=== PATIENT | male | born 1955 | race Caucasian/White ===

== ENCOUNTER 2024-12-13 15:15 | Inpatient (IN) | payer MEDICARE ==
--- NOTE | 2024-12-13 15:46 | ED ---
Abdominal Pain HPI - General Chief Complaint: Abdominal Pain Stated Complaint: Abd Pain Time Seen by Provider: 12/13/24 15:21 Source: EMS Mode of arrival: EMS - History of Present Illness Initial Comments: This patient is a 69-year-old man who arrives here as a transfer from [facility]. The patient had gone there to have evaluation of abdominal pain that started around 12:30 AM this morning. The patient indicates that the pain was a periumbilical and right upper quadrant. The pain seemed to radiate towards his right shoulder for a bit. He described the pain as aching and cramping. There was associated nausea and vomiting. Patient did not note fever or chills. No change in bowel movements or urination. No other associated symptoms. The patient had workup at the other hospital and included the CT which reportedly showed 2.5 cm stone at the gallbladder neck with distended gallbladder and mild wall thickening which they read as suspicious for de veloping acute cholecystitis. The patient had CBC which included leukocytosis white count was 14.1. Hemoglobin and platelets normal. From the chemistries, patient's glucose mildly elevated at 141. Sodium trace low at 132. Treatment at the other hospital included 1 L saline solution, morphine 4 mg, ondansetron 4 mg, Zosyn 4 g. MD Complaint: abdominal pain Onset/Timin -: hour(s) Location: periumbilical, RUQ Radiation: other (Right shoulder) Migration to: no migration Severity: moderate Quality: cramping, aching Consistency: constant Improves With: nothing Worsens With: nothing Associated Symptoms: nausea, vomiting - Related Data Home Medications Medication Instructions Recorded Confirmed Chlorthalidone [Hygroton] 25 mg PO W/BRKFST 12/13/24 12/13/24 Famotidine [Pepcid] 20 mg PO BID 12/13/24 12/13/24 Tamsulosin [Flomax] 0.4 mg PO DAILY 12/13/24 12/13/24 amLODIPine BESYLATE/BENAZEPRIL 1 cap PO DAILY 12/13/24 12/13/24 [amLODIPine BESYLATE/BENAZEPRIL 10-20 mg] Previous Rx's Medication Instructions Recorded Amoxic-Pot Clav 500-125 mg 1 tab PO Q12HR #8 tab 12/16/24 [Augmentin 500-125 mg] HYDROcodone/APAP 5-325MG [Hobgood 1 tab PO Q6HR PRN 3 Days #12 tab 12/16/24 5-325] Allergies Allergy/AdvReac Type Severity Reaction Status Date / Time No Known Allergies Allergy Verified 12/13/24 18:40 Review of Systems ROS Statement: Those systems with pertinent positive or pertinent negative responses have been documented in the HPI. ROS Other: All systems not noted in ROS Statement are negative. Constitutional: Denies: fever, chills, weakness Respiratory: Denies: cough, dyspnea Cardiovascular: Denies: chest pain, palpitations, edema Gastrointestinal: Reports: abdominal pain, nausea, vomiting. Denies: diarrhea, constipation, hematemesis, melena, hematochezia Genitourinary: Denies: dysuria, hematuria, testicular pain, testicular mass Musculoskeletal: Denies: back pain Skin: Denies: rash Neurological: Denies: headache, weakness Past Medical History Past Medical History: GERD/Reflux, Hypertension History of Any Multi-Drug Resistant Organisms: None Reported Additional Past Surgical History / Comment(s): Right Rotator cuff repair (2019) Past Psychological History: No Psychological Hx Reported Smoking Status: Former smoker Past Alcohol Use History: Occasional Past Drug Use History: None Reported General Exam General appearance: alert, in no apparent distress Head exam: Present: atraumatic, normocephalic Eye exam: Present: normal appearance. Absent: scleral icterus, conjunctival injection ENT exam: Present: normal oropharynx Neck exam: Present: normal inspection Respiratory exam: Present: normal lung sounds bilaterally. Absent: respiratory distress, wheezes, rales, rhonchi, stridor, accessory muscle use Cardiovascular Exam: Present: regular rate, normal rhythm, normal heart sounds. Absent: systolic murmur, diastolic murmur, rubs, gallop GI/Abdominal exam: Present: soft, tenderness, normal bowel sounds. Absent: distended, guarding, rebound, rigid, mass, pulsatile mass, hernia Extremities exam: Present: normal inspection, normal capillary refill. Absent: pedal edema, calf tenderness Back exam: Present: normal inspection. Absent: CVA tenderness (R), CVA tenderness (L) Neurological exam: Present: alert Skin exam: Present: warm, dry, intact, normal color. Absent: rash Course Vital Signs 12/13/24 12/13/24 12/13/24 15:20 17:52 18:55 Temperature 97.9 F 97.7 F Pulse Rate 82 74 Pulse Rate [ 75 Pulse Oximetery ] Respiratory 16 16 18 Rate Blood Pressure 118/70 130/75 Blood Pressure 108/70 [Left Arm] O2 Sat by Pulse 99 97 98 Oximetry Medical Decision Making - Medical Decision Making This patient is 69-year-old man transferred here from [facility] where he had gone to have evaluation of abdominal pain and been found to have 2.5 cm gallstone lodged in gallbladder neck, with suspected acute cholecystitis associated. Case discussed with Dr. Nagel from surgery who will admit, requests medical management consultation. Was pt. sent in by a medical professional or institution (, PA, SHIP DESIGN TEACHER, urgent care, hospital, or fci...) When possible be specific @ -[No] Did you speak to anyone other than the patient for history (EMS, parent, family, police, friend...)? What history was obtained from this source @ -[No] Did you review nursing and triage notes (agree or disagree)? Why? @ -[I reviewed and agree with nursing and triage notes] Were old charts reviewed (outside hosp., previous admission, EMS record, old EKG, old radiological studies, urgent care reports/EKG's, fci records)? Report findings @ -[The transfer charts were reviewed] Differential Diagnosis (chest pain, altered mental status, abdominal pain women, abdominal pain men, vaginal bleeding, weakness, fever, dyspnea, syncope, headache, dizziness, GI bleed, back pain, seizure, CVA, palpatations, mental health, musculoskeletal)? @ -[Differential Abdominal Pain Men: Appendicitis, cholecystitis, diverticulosis, ischemic bowel, pancreatitis, hepatitis, UTI, gastroenteritis, AAA, incarcerated hernia, bowel obstruction, constipation, inflammatory bowel, hepatitis, peptic ulcer disease, splenic infa rction, perforated viscus, testicular torsion, this is not meant to be an all- inclusive list EKG interpreted by me (3pts min.). @ -[As above] X-rays interpreted by me (1pt min.). @ -[None done] CT interpreted by me (1pt min.). @ -[None done] U/S interpreted by me (1pt. min.). @ -[None done] What testing was considered but not performed or refused? (CT, X-rays, U/S, labs)? Why? @ -[None] What meds were considered but not given or refused? Why? @ -[None] Did you discuss the management of the patient with other professionals (professionals i.e. , PA, SHIP DESIGN TEACHER, lab, RT, psych nurse, transition social worker, clinical support tech, teacher, chief communications officer, disability case manager)? Give summary @ -[Case discussed with admitting physician and treatment recommendations Incorporated Was smoking cessation discussed for >3mins.? @ -[No] Was critical care preformed (if so, how long)? @ -[No] Were there social determinants of health that impacted care today? How? (Homelessness, low income, unemployed, alcoholism, drug addiction, transportation, low edu. Level, literacy, decrease access to med. care, custodial, rehab)? @ -[No] Was there de-escalation of care discussed even if they declined (Discuss DNR or withdrawal of care, Hospice)? DNR status @ -[No] What co-morbidities impacted this encounter? (DM, HTN, Smoking, COPD, CAD, Cancer, CVA, ARF, Chemo, Hep., AIDS, mental health diagnosis, sleep apnea, morbid obesity)? @ -[None] Was patient admitted / discharged? Hospital course, mention meds given and route, prescriptions, significant lab abnormalities, going to OR and other pertinent info. @ -[Patient will be admitted to have surgery evaluation for suspected acute cholecystitis Undiagnosed new problem with uncertain prognosis? @ -[No] Drug Therapy requiring intensive monitoring for toxicity (Heparin, Nitro, Insu janis, Cardizem)? @ -[No] Were any procedures done? @ -[No] Diagnosis/symptom? @ -[d acute cholecystitis Acute, or Chronic, or Acute on Chronic? @ -Acute Uncomplicated (without systemic symptoms) or Complicated (systemic symptoms)? @ -[Uncomplicated Side effects of treatment? @ -[No] Exacerbation, Progression, or Severe Exacerbation? @ -[No] Poses a threat to life or bodily function? How? (Chest pain, [place], [place], pneumonia, PE, COPD, DKA, ARF, appy, cholecystitis, CVA, Diverticulitis, Homicidal, Suicidal, threat to staff... and all critical care pts) @ -[No] All treatments are based on ideal body weight as in ED triage - Lab Data Result diagrams: 12/16/24 02:43 12/16/24 02:43 - EKG Data -: EKG Interpreted by Me EKG shows normal: sinus rhythm (With occasional supraventricular complex), axis (Borderline left axis deviation), intervals (CO interval 198 ms, normal. QTc 417 ms, normal. QRS duration 133 ms, prolonged consistent with right bundle branch block), QRS complexes (Right bundle branch block), ST-T waves Disposition Clinical Impression: Abdominal pain, Cholecystitis Disposition: ADMITTED IP TO THIS HOSP Condition: Stable Is patient prescribed a controlled substance at d/c from ED?: No
[2024-12-13] MEDS ORDERED: NALOXONE 0.4 MG/ML 1 ML VIAL IV PRN (16:28)
[2024-12-13] MEDS ORDERED: MAG HYDROX/AL HYDROX/SIMETH 30 ML CUP PO PRN (16:28)
[2024-12-13] MEDS ORDERED: ONDANSETRON 4 MG/2 ML VIAL IVP PRN (16:28)
[2024-12-13] MEDS: SODIUM CHLORIDE 0.9% 1,000 ML IV SCH (17:47)
[2024-12-13] MEDS: PIPERACILLIN-TAZOBACTAM 3.375 GM in SODIUM CHLORIDE 0.9% 100 ML IVPB SCH (17:49)
[2024-12-13 17:52] LABS: Basophils # (A) 0.03 10*3/uL (0.00-0.10); Basophils % (A) 0.3 %; Eosinophils # (A) 0.05 10*3/uL (0.04-0.35); Eosinophils % (A) 0.5 %; HCT 45.4 % (39.6-50.0); HGB 16.1 g/dL (13.0-17.0); Lymphocytes # (A) 0.83 10*3/uL (0.90-5.00); Lymphocytes % (A) 7.6 %; MCHC 35.5 g/dL (32.0-37.0); MCV 87.5 fL (80.0-97.0); Mean Platelet Volume 10.7 fL (9.5-12.2); Monocytes % (A) 7.3 %; Neutrophils # (A) 9.21 10*3/uL (1.80-7.70); Neutrophils % (A) 84.1 %; Platelet Count 144 10*3/uL (140-440); RBC 5.19 10*6/uL (4.40-5.60); RDW 12.6 % (11.5-14.5); WBC 10.94 10*3/uL (4.50-10.00)
[2024-12-13 17:53] LABS: African American GFR (CKD) 89 (>60 ml/min/1.73 sqM); Anion Gap 10 mmol/L; Blood Urea Nitrogen 16 mg/dL (9-20); Calcium 9.4 mg/dL (8.4-10.2); Carbon Dioxide 26 mmol/L (22-30); Chloride 100 mmol/L (98-107); Glucose 115 mg/dL (74-99); Non-African American GFR(CKD) 77 (>60 ml/min/1.73 sqM); Potassium 4.1 mmol/L (3.5-5.1); Sodium 136 mmol/L (137-145)
--- NOTE | 2024-12-13 18:00 | P.GSHP ---
History of Present Illness H&P Date: 12/13/24 This patient is a 69-year-old man who was transferred from [facility]. The patient had gone there to have evaluation for abdominal pain that started around 12:30 AM this morning. The patient indicates that the pain was a periumbilical and right upper quadrant. The pain seemed to radiate towards his right shoulder. He described the pain as aching and cramping. There was associated nausea and vomiting. Patient did not note fever or chills. No change in bowel movements or urination. No other associated symptoms. The patient had workup at the other hospital which included a CT-AP which reportedly showed a 2.5 cm stone at the gallbladder neck with distended gallbladder and mild wall thickening which was concerning for acute cholecystitis. The patient had CBC which included leukocytosis. Review of Systems ROS Statement: Those systems with pertinent positive or pertinent negative responses have been documented in the HPI. ROS Other: All systems not noted in ROS Statement are negative. Constitutional: Denies: fever, chills, weakness Respiratory: Denies: cough, dyspnea Cardiovascular: Denies: chest pain, palpitations, edema Gastrointestinal: Reports: abdominal pain, nausea, vomiting. Denies: diarrhea, constipation, hematemesis, melena, hematochezia Genitourinary: Denies: dysuria, hematuria, testicular pain, testicular mass Musculoskeletal: Denies: back pain Skin: Denies: rash Neurological: Denies: headache, weakness Past Medical History Past Medical History: GERD/Reflux, Hypertension History of Any Multi-Drug Resistant Organisms: None Reported Additional Past Surgical History / Comment(s): Right Rotator cuff repair (2019) Past Psychological History: No Psychological Hx Reported Smoking Status: Former smoker Past Alcohol Use History: Occasional Past Drug Use History: None Reported General Exam General appearance: alert, in no apparent distress Head exam: Present: atraumatic, normocephalic Eye exam: Present: normal appearance. Absent: scleral icterus, conjunctival injection ENT exam: Present: normal oropharynx Neck exam: Present: normal inspection Respiratory exam: Present: normal lung sounds bilaterally. Absent: respiratory distress, wheezes, rales, rhonchi, stridor, accessory muscle use Cardiovascular Exam: Present: regular rate, normal rhythm, normal heart sounds. Absent: systolic murmur, diastolic murmur, rubs, gallop GI/Abdominal exam: Present: soft, tenderness, normal bowel sounds. Absent: distended, guarding, rebound, rigid, mass, pulsatile mass, hernia Extremities exam: Present: normal inspection, normal capillary refill. Absent: pedal edema, calf tenderness Back exam: Present: normal inspection. Absent: CVA tenderness (R), CVA tenderness (L) Neurological exam: Present: alert Skin exam: Present: warm, dry, intact, normal color. Absent: rash 69 year old male with Acute Cholecystitis -Will plan for Robotic Cholecystectomy tomorrow -Regular Diet -NPO/midnight -IV fluids -Zosyn -Pain and Nausea Control -AM labs -Medicine consult for medical management Pierre Nagel [facility] [phone] Past Medical History Past Medical History: GERD/Reflux, Hypertension History of Any Multi-Drug Resistant Organisms: None Reported Additional Past Surgical History / Comment(s): Right Rotator cuff repair (2019) Past Psychological History: No Psychological Hx Reported Smoking Status: Former smoker Past Alcohol Use History: Occasional Past Drug Use History: None Reported Medications and Allergies Home Medications Medication Instructions Recorded Confirmed Type Chlorthalidone [Hygroton] 25 mg PO W/BRKFST 12/13/24 12/13/24 History Famotidine [Pepcid] 20 mg PO BID 12/13/24 12/13/24 History Tamsulosin [Flomax] 0.4 mg PO DAILY 12/13/24 12/13/24 History amLODIPine BESYLATE/BENAZEPRIL 1 cap PO DAILY 12/13/24 12/13/24 History [amLODIPine BESYLATE/BENAZEPRIL 10-20 mg] Allergies Allergy/AdvReac Type Severity Reaction Status Date / Time No Known Allergies Allergy Verified 12/13/24 17:33 Surgical - Exam Vital Signs Temp Pulse Resp BP Pulse Ox 97.9 F 82 16 118/70 99 12/13/24 15:20 12/13/24 15:20 12/13/24 15:20 12/13/24 15:20 12/13/24 15:20 Results - Labs 12/13/24 17:22 12/13/24 17:22 Abnormal Lab Results - Last 24 Hours (Table) 12/13/24 12/13/24 Range/Units 17:22 17:22 WBC 10.94 H (4.50-10.00) 10*3/uL Neutrophils # 9.21 H (1.80-7.70) 10*3/uL Lymphocytes # 0.83 L (0.90-5.00) 10*3/uL Sodium 136 L (137-145) mmol/L Glucose 115 H (74-99) mg/dL Diabetes panel 12/13/24 Range/Units 17:22 Sodium 136 L (137-145) mmol/L Potassium 4.1 (3.5-5.1) mmol/L Chloride 100 (98-107) mmol/L Carbon Dioxide 26 (22-30) mmol/L BUN 16 (9-20) mg/dL Creatinine 1.00 (0.66-1.25) mg/dL Glucose 115 H (74-99) mg/dL Calcium 9.4 (8.4-10.2) mg/dL Calcium panel 12/13/24 Range/Units 17:22 Calcium 9.4 (8.4-10.2) mg/dL Pituitary panel 12/13/24 Range/Units 17:22 Sodium 136 L (137-145) mmol/L Potassium 4.1 (3.5-5.1) mmol/L Chloride 100 (98-107) mmol/L Carbon Dioxide 26 (22-30) mmol/L BUN 16 (9-20) mg/dL Creatinine 1.00 (0.66-1.25) mg/dL Glucose 115 H (74-99) mg/dL Calcium 9.4 (8.4-10.2) mg/dL Adrenal panel 12/13/24 Range/Units 17:22 Sodium 136 L (137-145) mmol/L Potassium 4.1 (3.5-5.1) mmol/L Chloride 100 (98-107) mmol/L Carbon Dioxide 26 (22-30) mmol/L BUN 16 (9-20) mg/dL Creatinine 1.00 (0.66-1.25) mg/dL Glucose 115 H (74-99) mg/dL Calcium 9.4 (8.4-10.2) mg/dL
[2024-12-13] MEDS: HYDROmorphone 1 MG/ML 1 ML SYRINGE IVP PRN (18:04)
[2024-12-13 18:13] LABS: Prothrombin Time 10.6 sec (10.0-12.5)
--- NOTE | 2024-12-13 19:38 | P.CONS ---
History of Present Illness - Reason for Consult Consult date: 12/13/24 Medical management - Chief Complaint Medical management - History of Present Illness This is a 69-year-old male patient with a past medical history of essential hypertension, GERD who was transferred from [facility] and admitted under surgery for evaluation of abdominal pain. Patient had a CT abdomen pelvis which showed a 2.5 cm stone at the gallbladder neck with distended gallbladder and mild wall thickening concerning for acute cholecystitis. Vital signs are stable. Labs showing mild leukocytosis of 10.94. Chemistry within normal limits. Patient currently on IV Zosyn and plan for lap cholecystectomy. Patient is usually on combination medication of chlorthalidone and amlodipine/Benazepril . Patient reports that he is compliant with his medication. His blood pressure right now is 108/70 . He denies having any shortness of breath or chest pain. No history of coronary artery disease. He reprots that he is active . Past medical history : GERD, essential hypertension Past surgical history : Right rotator cuff repair Social history : Former tobacco user, occasional alcohol use no illicit drug use Review of system : Negative except for mentioned HPI PE : General: nontoxic, no distress, appears at stated age Derm: warm, dry, intact Head: atraumatic, normocephalic, symmetric Eyes: EOMI, anicteric sclera Mouth: no lip lesion, mucus membranes moist Cardiovascular: S1 S2 reg, no murmur, rubs, or gallops Lungs: CTA bilateral, no rales, no accessory muscle use Abdominal: soft, right upper quadrant tenderness upon palpation, no appreciable organomegaly, no guarding or rebound tenderness Extremities: no gross muscle atrophy, no edema, no contractures Neuro: Alert, Oriented, CNII-XII grossly intact, gait normal Psych: well appearing, appropriate affect Assessment and plan : -Essential hypertension : Patient's blood pressure is borderline and will hold resuming his antihypertensive medication for now -GERD : Resume Pepcid 20 mg twice daily - Acute cholecystitis : Patient's revised cardiac risk index for preoperative risk is 0 points and can proceed with surgery He denies having any chest pain or SOB . His functional status is considered to be good CODE STATUS is full DVT prophylaxis on SCD Thank you for the consult Time spent : 45 min Past Medical History Past Medical History: GERD/Reflux, Hypertension History of Any Multi-Drug Resistant Organisms: None Reported Additional Past Surgical History / Comment(s): Right Rotator cuff repair (2019) Past Psychological History: No Psychological Hx Reported Smoking Status: Former smoker Past Alcohol Use History: Occasional Past Drug Use History: None Reported Medications and Allergies Home Medications Medication Instructions Recorded Confirmed Type Chlorthalidone [Hygroton] 25 mg PO W/BRKFST 12/13/24 12/13/24 History Famotidine [Pepcid] 20 mg PO BID 12/13/24 12/13/24 History Tamsulosin [Flomax] 0.4 mg PO DAILY 12/13/24 12/13/24 History amLODIPine BESYLATE/BENAZEPRIL 1 cap PO DAILY 12/13/24 12/13/24 History [amLODIPine BESYLATE/BENAZEPRIL 10-20 mg] Allergies Allergy/AdvReac Type Severity Reaction Status Date / Time No Known Allergies Allergy Verified 12/13/24 18:40 Physical Exam Vitals: Vital Signs Temp Pulse Pulse Resp BP BP Pulse Ox 12/13/24 18:55 97.7 F 75 18 108/70 98 12/13/24 17:52 74 16 130/75 97 12/13/24 15:20 97.9 F 82 16 118/70 99 Intake and Output 12/13/24 12/13/24 12/13/24 06:59 14:59 22:59 Other: Weight 102.058 kg Results CBC & Chem 7: 12/13/24 17:22 12/13/24 17:22 Labs: Abnormal Lab Results - Last 24 Hours (Table) 12/13/24 12/13/24 Range/Units 17:22 17:22 WBC 10.94 H (4.50-10.00) 10*3/uL Neutrophils # 9.21 H (1.80-7.70) 10*3/uL Lymphocytes # 0.83 L (0.90-5.00) 10*3/uL Sodium 136 L (137-145) mmol/L Glucose 115 H (74-99) mg/dL
[2024-12-14] MEDS: ACETAMINOPHEN TAB 325 MG TAB PO PRN (06:26)
[2024-12-14 08:29] LABS: Basophils # (A) 0.03 10*3/uL (0.00-0.10); Basophils % (A) 0.4 %; Eosinophils % (A) 1.3 %; HCT 42.4 % (39.6-50.0); HGB 14.8 g/dL (13.0-17.0); Lymphocytes # (A) 0.61 10*3/uL (0.90-5.00); Lymphocytes % (A) 7.6 %; MCH 31.3 pg (27.0-32.0); MCHC 34.9 g/dL (32.0-37.0); MCV 89.6 fL (80.0-97.0); Mean Platelet Volume 11.6 fL (9.5-12.2); Monocytes # (A) 0.81 10*3/uL (0.20-1.00); Monocytes % (A) 10.1 %; Neutrophils # (A) 6.43 10*3/uL (1.80-7.70); Neutrophils % (A) 80.3 %; Platelet Count 141 10*3/uL (140-440); RBC 4.73 10*6/uL (4.40-5.60); RDW 12.7 % (11.5-14.5)
[2024-12-14 08:33] LABS: ALT 19 U/L (4-49); AST 18 U/L (17-59); African American GFR (CKD) 75 (>60 ml/min/1.73 sqM); Albumin 3.3 g/dL (3.5-5.0); Albumin/Globulin Ratio 1.5; Alkaline Phosphatase 35 U/L (38-126); Anion Gap 7 mmol/L; Bilirubin,Unconjugated 1.2 mg/dL (0.0-1.1); Blood Urea Nitrogen 15 mg/dL (9-20); Carbon Dioxide 25 mmol/L (22-30); Chloride 101 mmol/L (98-107); Globulin 2.2 g/dL; Glucose 96 mg/dL (74-99); Non-African American GFR(CKD) 65 (>60 ml/min/1.73 sqM); Potassium 3.9 mmol/L (3.5-5.1); Sodium 133 mmol/L (137-145); Total Bilirubin 1.4 mg/dL (0.2-1.3); Total Protein 5.5 g/dL (6.3-8.2)
[2024-12-14 08:40] LABS: INR 1.1 (<1.2)
[2024-12-14] MEDS: amLODIPine 10 MG TAB PO SCH (09:00)
[2024-12-14] MEDS: FAMOTIDINE 20 MG TAB PO SCH (09:00)
[2024-12-14] MEDS: TAMSULOSIN 0.4 MG CAP.ER.24H PO SCH (09:00)
[2024-12-14] MEDS: lisinopriL 20 MG TAB PO SCH (09:01)
[2024-12-14] MEDS: PANTOPRAZOLE 40 MG/10 ML VIAL IV SCH (09:05)
[2024-12-14] MEDS ORDERED: MIDAZOLAM 2 MG/2 ML VIAL ONE (11:45)
[2024-12-14] MEDS ORDERED: PROPOFOL 10 MG/ML 20 ML VIAL IV ONE (11:45)
[2024-12-14] MEDS ORDERED: NEOSTIGMINE 1 MG/ML 10 ML VIAL ONE (11:45)
[2024-12-14] MEDS ORDERED: ROCURONIUM 10 MG/ML (5 ML VIAL) IV ONE (11:45)
[2024-12-14] MEDS ORDERED: fentaNYL (PF) 50 MCG/ML 2 ML AMP ONE (11:45)
[2024-12-14] MEDS ORDERED: PHENYLEPHRINE-0.9% NACL SYG 1,000 MCG/10 ML SYRINGE ONE (11:45)
[2024-12-14] MEDS ORDERED: GLYCOPYRROLATE 0.2 MG/ML 2 ML VIAL ONE (11:45)
[2024-12-14] MEDS ORDERED: LIDOCAINE 1% INJ 10MG/ML (20 ML MDV) ONE (11:45)
[2024-12-14] MEDS ORDERED: ePHEDrine 50 MG/ML 1 ML VIAL ONE (11:45)
[2024-12-14] MEDS ORDERED: SUCCINYLCHOLINE CHLORIDE 200 MG/10 ML VIAL IV ONE (11:45)
[2024-12-14] MEDS: LIDOCAINE 1%-EPI 1:100,000 20 ML VIAL SQ ONE ×2 (11:54→12:35)
--- NOTE | 2024-12-14 12:39 | P.OP ---
Date of Procedure: 12/14/24 Preoperative Diagnosis: Acute Cholecystitis Postoperative Diagnosis: Acute Gangrenous Cholecystitis Procedure(s) Performed: Robotic Cholecystectomy Anesthesia: MEGAN Surgeon: Pierre Nagel Estimated Blood Loss (ml): 50 Pathology: other (Gallbladder.) Condition: stable Disposition: PACU Description of Procedure: The patient was brought to the operating room and placed in the supine position. Anesthesia was given and the patient was intubated. The abdomen was prepped and draped in usual sterile fashion. A timeout was performed prior to beginning the procedure. An #11 blade was made at [employer] [place] and a 5 mm optiview was used to gain access to the abdomen. The abdomen was insufflated. The patient was position. Additional working 8 mm robotic ports were placed in standard fashion and the 8 mm port at [facility] was replaced with a 12 mm robotic port. The robot was docked, the instruments were inserted safely into the abdominal cavity and the rest of the procedure was performed from the console. The gallbladder was inspected. The gallbladder was noted to be gangrenous with patchy necrosis and markedly inflamed. The gallbladder fundus and infundibulum were grasped and retracted. Hook cautery was used to clear and safely dissect out the cystic duct and the cystic artery. Both were seen directly entering the gallbladder. Once dissection was complete, a critical view of safety was obtained. Two robotic clips were placed distally and two placed proximally on both the cystic duct and cystic artery. The clipped duct and artery were divided with hook cautery. Hook cautery was then used to safely cauterize the gallbladder off of the liver. Once the gallbladder was free from the liver, the liver was inspected and there was no active bleeding. The abdomen was thoroughly irrigated. An endocatch bag was placed through the 12 mm port and the gallbladder was removed from the abdominal cavity, The fascia of the 12 mm port site was closed with an #0 Vicryl Suture using a Jakub Biju device. At this time, the instruments were all removed and the robot was undocked. The ports were removed. The incisions were inspected and there was no active bleeding. Incisions were closed with #4-0 monocryl. Skin glue was applied. This concluded the procedure. The patient tolerated the procedure well and was sent to the PACU in stable condition.
[2024-12-14] MEDS: SODIUM CHLORIDE 0.9% 1,000 ML IV ONE (12:42)
[2024-12-14] MEDS: HYDROmorphone 0.5 MG/0.5 ML SYRINGE IVP PRN (13:11)
[2024-12-14] MEDS ORDERED: METOPROLOL SUCCINATE (ER) 25 MG TAB.ER.24H PO SCH (15:28)
[2024-12-14] MEDS: HYDROcodone/APAP 10-325MG 1 EACH TAB PO PRN (16:01)
[2024-12-14] MEDS: SODIUM CHLORIDE 0.9% 1,000 ML IV SCH (16:05)
[2024-12-14] MEDS: LACTATED RINGERS 1,000 ML IV SCH (16:06)
--- NOTE | 2024-12-14 17:30 | P.PN ---
Subjective Progress Note Date: 12/14/24 Hospital course: Patient is a very pleasant 69-year-old male with a past medical history of hypertension, BPH, and GERD. Scented to our facility on 12/13/2024 as a transfer from [facility] where patient initially presented with a chief complaint of abdominal pain and was found to have a 2.5 cm stone at the gallbladder neck with distended gallbladder and mild wall thickening concerning for acute cholecystitis. Upon arrival to our facility, patient underwent evaluation in the emergency department. Vital signs upon arrival show blood pressure 118/70, heart rate 82, respiratory rate 16, temp 97.9 F, and SpO2 of 99% on room air. EKG was completed showing normal sinus rhythm at 67 bpm with T wave inversion in inferior lead III and frequent PACs. Labs were completed and reviewed. CBC showing leukocytosis with WBC count of 10.94, elevated neutrophils of 9.21, and lymphocytes of 0.83. BMP unremarkable. Blood glucose 115. Calcium 9.4. Patient was admitted under the general surgery team and we were consulted for medical management throughout hospitalization. Physical exam: Patient was seen and fully evaluated at bedside this morning. He was resting in bed visiting with at bedside. Patient reports improvement of pain since arrival to our facility stating controlled with current pain medication regimen. He denies having any nausea or vomiting, chest pain or palpitations, shortness of breath, cough or congestion, or any other complaints at this time. Vital signs reviewed and stable. General: Nontoxic, no distress and appears stated age. Derm: Skin warm and dry, normal coloration for ethnicity. Head: Atraumatic, normocephalic and symmetric. Eyes: EOM's intact, no lid lag, and anicteric sclera Mouth: no lip lesions, mucus membranes moist Cardiovascular: regular rate and rhythm with normal S1S2, no murmur, positive posterior tibial pulses bilaterally, and cap refill < 2 seconds. Lungs: Respirations even, regular, and unlabored on room air. Lungs CTA bilaterally, no rhonchi, no rales, no wheezing, and no accessory muscle usage. Abdominal: soft, tenderness upon palpation right upper and right lower quadrant no guarding, no appreciable organomegaly Ext: ROM intact. No gross muscle atrophy, no edema, no contractures Neuro: Speech clear, face symmetrical and CN II-XII grossly intact with no noted focal neuro deficits Psych: Alert and oriented to person, place, time, and situation. Appropriate and pleasant affect. Assessment and Plan of Care: Acute cholecystitis Hyperbilirubinemia - Patient admitted under general surgery team with plans to take patient for laparoscopic cholecystectomy later today. - Continue IV antibiotics with Zosyn 3.375 g every 8 hours. - Zofran 4 mg IVP every 8 hours as needed for nausea or vomiting. - Tylenol 650 mg p.o. every 6 hours as needed for mild pain/fever, [place] 10/325 mg tablets every 6 hours as needed for moderate pain, Dilaudid 1 mg every 3 hours as needed for severe pain. - Maintain n.p.o. status pending advancement of diet by general surgery team. - GI prophylaxis with Protonix 40 mg daily. Hypertension Monitor vital signs and continue daily medication regimen with-amlodipine 10 mg daily and lisinopril 20 mg daily. Will hold chlorthalidone while patient remains NPO. Benign prostate hypertrophy -Continue Flomax 0.4 mg daily. GERD -GI prophylaxis with Protonix 40 mg daily. Data and imaging reviewed: Morning labs reviewed. CBC showing resolution of leukocytosis with WBC count decreasing from 10.94 down to 8.00 this morning. BMP revealing mild hyponatremia with sodium of 133 otherwise normal findings. Blood glucose 96. Liver profile showing an elevated total bili of 1.4 and elevated unconjugated bilirubin of 1.2. Vital signs reviewed. Blood pressure 100/66, heart rate 84, respiratory rate 18, temp 99.2 F, and SpO2 of 94% on room air. Thank you for allowing us to participate in the care of this pleasant patient. Do not hesitate to contact us with questions. Someone can be reached from the [facility] hospitalist group all hours of the day at [phone] or via [employer]. Patient was seen independently by Nurse Pracitioner. This document was prepared using [employer] dictation software. Please allow for errors in mine engineer, while rare they do occur. Avtar Vasquez NP rendered care for this patient independently, reviewed the findings and plan as documented in the note above and agree with plan. I did not physically speak with or examine the patient on this date. Objective - Vital Signs Vital signs: Vital Signs Temp 98.8 F 12/14/24 00:20 Pulse 76 12/14/24 00:20 Resp 17 12/14/24 00:20 BP 104/66 12/14/24 00:20 Pulse Ox 96 12/14/24 00:20 FiO2 Intake & Output 12/13/24 12/14/24 12/14/24 18:59 06:59 18:59 Weight 102.058 kg Other: # Voids 2 - Labs CBC & Chem 7: 12/14/24 05:39 12/14/24 05:39 Labs: Abnormal Lab Results - Last 24 Hours (Table) 12/13/24 12/13/24 12/14/24 Range/Units 17:22 17:22 05:39 WBC 10.94 H (4.50-10.00) 10*3/uL Neutrophils # 9.21 H (1.80-7.70) 10*3/uL Lymphocytes # 0.83 L 0.61 L (0.90-5.00) 10*3/uL Sodium 136 L (137-145) mmol/L Glucose 115 H (74-99) mg/dL Total Bilirubin (0.2-1.3) mg/dL Unconjugated Bilirubin (0.0-1.1) mg/dL Alkaline Phosphatase (38-126) U/L Total Protein (6.3-8.2) g/dL Albumin (3.5-5.0) g/dL 12/14/24 Range/Units 05:39 WBC (4.50-10.00) 10*3/uL Neutrophils # (1.80-7.70) 10*3/uL Lymphocytes # (0.90-5.00) 10*3/uL Sodium 133 L (137-145) mmol/L Glucose (74-99) mg/dL Total Bilirubin 1.4 H (0.2-1.3) mg/dL Unconjugated Bilirubin 1.2 H (0.0-1.1) mg/dL Alkaline Phosphatase 35 L (38-126) U/L Total Protein 5.5 L (6.3-8.2) g/dL Albumin 3.3 L (3.5-5.0) g/dL
[2024-12-15 10:04] LABS: Basophils # (A) 0.03 X 10*3/uL (0.00-0.10); Basophils % (A) 0.4 %; Eosinophils # (A) 0.14 X 10*3/uL (0.04-0.35); Eosinophils % (A) 1.9 %; HCT 44.4 % (39.6-50.0); HGB 14.8 g/dL (13.0-17.0); Lymphocytes # (A) 0.77 X 10*3/uL (0.90-5.00); Lymphocytes % (A) 10.2 %; MCH 30.7 pg (27.0-32.0); MCHC 33.3 g/dL (32.0-37.0); MCV 92.1 FL (80.0-97.0); Mean Platelet Volume 11.7 FL (9.5-12.2); Monocytes # (A) 0.77 X 10*3/uL (0.20-1.00); Monocytes % (A) 10.2 %; NRBC Per 100 WBC 0 X 10*3/uL (0.00-0.01); Neutrophils % (A) 77.2 %; Platelet Count 129 X 10*3/uL (140-440); RBC 4.82 X 10*6/uL (4.40-5.60); RDW 13.2 % (11.5-14.5); WBC 7.52 X 10*3/uL (4.50-10.00)
[2024-12-15 10:11] LABS: ALT 35 U/L (10-49); AST 28 U/L (14-35); Albumin 3.4 g/dL (3.8-4.9); Albumin/Globulin Ratio 1.62 Ratio (1.60-3.17); Alkaline Phosphatase 34 U/L (41-126); BUN/Creat Ratio 9.38 Ratio (12.00-20.00); Bilirubin, Conjugated 0.43 mg/dL (0.20-0.40); Bilirubin,Unconjugated 0.57 mg/dL (0.20-1.00); Blood Urea Nitrogen 12.2 mg/dL (9.0-27.0); Calcium 8.4 mg/dL (8.7-10.3); Carbon Dioxide 24.6 mmol/L (21.6-31.8); Chloride 103 mmol/L (96-109); Globulin 2.1 g/dL (1.6-3.3); Glucose 107 mg/dL (70-110); Potassium 3.6 mmol/L (3.5-5.5); Sodium 138 mmol/L (135-145); Total Protein 5.5 g/dL (6.2-8.2)
--- NOTE | 2024-12-15 12:34 | P.PN ---
Subjective Progress Note Date: 12/15/24 Hospital course: Patient is a very pleasant 69-year-old male with a past medical history of hypertension, BPH, and GERD. Scented to our facility on 12/13/2024 as a transfer from [facility] where patient initially presented with a chief complaint of abdominal pain and was found to have a 2.5 cm stone at the gallbladder neck with distended gallbladder and mild wall thickening concerning for acute cholecystitis. Upon arrival to our facility, patient underwent evaluation in the emergency department. Vital signs upon arrival show blood pressure 118/70, heart rate 82, respiratory rate 16, temp 97.9 F, and SpO2 of 99% on room air. EKG was completed showing normal sinus rhythm at 67 bpm with T wave inversion in inferior lead III and frequent PACs. Labs were completed and reviewed. CBC showing leukocytosis with WBC count of 10.94, elevated neutrophils of 9.21, and lymphocytes of 0.83. BMP unremarkable. Blood glucose 115. Calcium 9.4. Patient was admitted under the general surgery team and we were consulted for medical management throughout hospitalization. Physical exam: Patient was seen and fully evaluated at bedside this morning. He is day 1 postop laparoscopic cholecystectomy. He currently reports pain controlled with current pain medication regimen rating 4 out of 10 at this time. He is tolerating full liquid diet and denies any episodes of nausea or vomiting. Patient did have some difficulties with postoperative urinary retention requiring straight catheterization x 1, we are continuing to monitor bladder scans for postvoid residual/retention. Patient denies passing flatus or having bowel movement since surgery. Patient will be started on MiraLAX and encouraged patient to increase ambulation today. Vital signs reviewed and stable. General: Nontoxic, no distress and appears stated age. Derm: Skin warm and dry, normal coloration for ethnicity. Head: Atraumatic, normocephalic and symmetric. Eyes: EOM's intact, no lid lag, and anicteric sclera Mouth: no lip lesions, mucus membranes moist Cardiovascular: regular rate and rhythm with normal S1S2, no murmur, positive posterior tibial pulses bilaterally, and cap refill < 2 seconds. Lungs: Respirations even, regular, and unlabored on room air. Lungs CTA bilaterally, no rhonchi, no rales, no wheezing, and no accessory muscle usage. Abdominal: soft, tenderness upon palpation right upper and right lower quadrant no guarding, no appreciable organomegaly Ext: ROM intact. No gross muscle atrophy, no edema, no contractures Neuro: Speech clear, face symmetrical and CN II-XII grossly intact with no noted focal neuro deficits Psych: Alert and oriented to person, place, time, and situation. Appropriate and pleasant affect. Assessment and Plan of Care: Acute cholecystitis Hyperbilirubinemia - Patient admitted under general surgery team with plans to take patient for laparoscopic cholecystectomy later today. - Continue IV antibiotics with Zosyn 3.375 g every 8 hours. - Zofran 4 mg IVP every 8 hours as needed for nausea or vomiting. - Tylenol 650 mg p.o. every 6 hours as needed for mild pain/fever, [place] 10/325 mg tablets every 6 hours as needed for moderate pain, Dilaudid 1 mg every 3 hours as needed for severe pain. - Continue full liquid diet, advancement of diet by general surgery team. - GI prophylaxis with Protonix 40 mg daily. Postoperative urinary retention BPH Continue Flomax 0.4 mg daily. Continue bladder scanning to monitor for urinary retention and straight cath as needed for retention greater than 300 cc. Hypertension Monitor vital signs and continue daily medication regimen with-amlodipine 10 mg daily and lisinopril 20 mg daily. Will hold chlorthalidone while patient remains NPO. Benign prostate hypertrophy -Continue Flomax 0.4 mg daily. GERD -GI prophylaxis with Protonix 40 mg daily. Data and imaging reviewed: Morning labs reviewed. CBC showing mild thrombocytopenia with platelet count of 129. BMP unremarkable. Blood glucose 107. Liver profile showing resolution of hyperbilirubinemia with total bili of 1.0 and slightly elevated conjugated bilirubin of 0.43. Vital signs reviewed. Blood pressure 107/63, heart rate 92, respiratory rate 17, temp 98.0 F, and SpO2 of 94% on room air. Thank you for allowing us to participate in the care of this pleasant patient. Do not hesitate to contact us with questions. Someone can be reached from the [facility] hospitalist group all hours of the day at [phone] or via [employer]. Patient was seen independently by Nurse Pracitioner. This document was prepared using [employer] dictation software. Please allow for errors in pediatric lpn, while rare they do occur. Avtar Vasquez NP rendered care for this patient independently, reviewed the findings and plan as documented in the note above and agree with plan. I did not physically speak with or examine the patient on this date. Objective - Vital Signs Vital signs: Vital Signs Temp 98.0 F 12/15/24 08:00 Pulse 92 12/15/24 08:00 Resp 17 12/15/24 08:00 BP 107/63 12/15/24 08:00 Pulse Ox 94 L 12/15/24 08:00 FiO2 Intake & Output 12/14/24 12/15/24 12/15/24 18:59 06:59 18:59 Intake Total 2150 Output Total 25 100 Balance 2125 -100 Intake: IV 1150 Intake, IV Titration 1000 Amount Piperacillin-Tazobactam 3 100 .375 gm In Sodium Chloride 0.9% 100 ml @ 25 mls/hr IVPB Q8HR [facility] Rx# :[id number] Sodium Chloride 0.9% 1, 900 000 ml @ 75 mls/hr IV . [id number] [facility] Rx#:[id number] Output: Urine 100 Estimated Blood Loss 25 Other: # Voids 1 - Labs CBC & Chem 7: 12/15/24 04:28 12/15/24 04:28
[2024-12-15] MEDS: polyethylene glycoL 3350 17 GM POWD.PACK PO SCH (14:11)
--- NOTE | 2024-12-15 16:32 | P.PN ---
Progress Note - Text Progress Note Date: 12/15/24 Patient seen and examined. No acute events overnight. Tolerating clear liquid diet. Passing gas. Denies fevers and chills. Of note, the conjugated bilirubin is mildly elevated today. VSS General-NAD CVS-RRR Lungs-NLB Abdomen-soft, incisional TTP, ND Ext-no edema 69 year old male POD #1 Robotic Cholecystectomy for Acute Gangrenous Cholecystitis -Advanced to Regular Diet -Pain and Nausea Control -IV fluids -Continue antibiotics -Will recheck Hepatic Function Panel in AM Pierre Nagel DO [facility] [phone]
[2024-12-16 03:07] VITALS: RESP 18
[2024-12-16 07:31] VITALS: BP 119/71; PULSE 91; TEMP 98.5
[2024-12-16 10:27] LABS: ALT 35 U/L (10-49); AST 24 U/L (14-35); Albumin 3.4 g/dL (3.8-4.9); Albumin/Globulin Ratio 1.55 Ratio (1.60-3.17); Alkaline Phosphatase 35 U/L (41-126); Basophils # (A) 0.03 X 10*3/uL (0.00-0.10); Basophils % (A) 0.5 %; Bilirubin, Conjugated 0.41 mg/dL (0.20-0.40); Bilirubin,Unconjugated 0.69 mg/dL (0.20-1.00); Blood Urea Nitrogen 10.4 mg/dL (9.0-27.0); Calcium 8.6 mg/dL (8.7-10.3); Carbon Dioxide 24.1 mmol/L (21.6-31.8); Chloride 104 mmol/L (96-109); Eosinophils # (A) 0.14 X 10*3/uL (0.04-0.35); Eosinophils % (A) 2.2 %; Globulin 2.2 g/dL (1.6-3.3); Glucose 104 mg/dL (70-110); HCT 42.9 % (39.6-50.0); HGB 13.9 g/dL (13.0-17.0); Lymphocytes % (A) 15.8 %; MCH 30.3 pg (27.0-32.0); MCHC 32.4 g/dL (32.0-37.0); MCV 93.5 FL (80.0-97.0); Magnesium 1.8 mg/dL (1.5-2.4); Mean Platelet Volume 12.3 FL (9.5-12.2); Monocytes # (A) 0.68 X 10*3/uL (0.20-1.00); Monocytes % (A) 10.7 %; NRBC Per 100 WBC 0 X 10*3/uL (0.00-0.01); Neutrophils # (A) 4.47 X 10*3/uL (1.80-7.70); Neutrophils % (A) 70.5 %; Platelet Count 121 X 10*3/uL (140-440); Potassium 3.6 mmol/L (3.5-5.5); RBC 4.59 X 10*6/uL (4.40-5.60); RDW 13.2 % (11.5-14.5); Sodium 139 mmol/L (135-145); Total Bilirubin 1.1 mg/dL (0.3-1.2); Total Protein 5.6 g/dL (6.2-8.2); WBC 6.34 X 10*3/uL (4.50-10.00)
--- NOTE | 2024-12-16 12:43 | P.DS ---
Providers Date of admission: 12/13/24 16:28 Expected date of discharge: 12/16/24 Attending physician: Pierre Nagel DO Consults: 12/13/24 16:28 Consult Physician Routine Consulting Provider: Daisha Lane Consult Reason/Comments: Medical management Do you want consulting provider notified?: Yes Primary care physician: Physician Nonstaff Hospital Course: Discharge diagnosis 1. Acute gangrenous cholecystitis Hospital course This is a 69-year-old male who presented with periumbilical and right upper quadrant abdominal pain. He had a CT scan completed that showed a 2.5 cm stone at the gallbladder neck with distended gallbladder and mild wall thickening concerning for acute cholecystitis. Patient is status post robotic cholecystectomy. Patient tolerated surgery well. Pain is controlled. He is tolerating diet. He has been up and ambulating. He is having flatus. He is afebrile. White count has normalized. Patient is stable for discharge. Please refer to chart for any further details. Physician User Experience Designer note has been reviewed by physician. Signing provider agrees with the documented findings, assessment, and plan of care. Attestation Patient seen and examined at bedside. Present with chief complaint of abdominal pain and found to have gangrenous cholecystitis. He is status post robotic cholecystectomy. Has been doing well since discharge. Pain controlled. Up and ambulating. Leukocytosis has resolved. Liver enzymes downward trending. Surgically stable for discharge. Discharge on antibiotics. Barbra Thomas DO Patient Condition at Discharge: Stable Plan - Discharge Summary New Discharge Prescriptions: New HYDROcodone/APAP 5-325MG [[place] 5-325] 1 tab PO Q6HR PRN 3 Days #12 tab PRN Reason: Pain Amoxic-Pot Clav 500-125 mg [Augmentin 500-125 mg] 1 tab PO Q12HR #8 tab Continue Tamsulosin [Flomax] 0.4 mg PO DAILY Famotidine [Pepcid] 20 mg PO BID Chlorthalidone [Hygroton] 25 mg PO W/BRKFST amLODIPine BESYLATE/BENAZEPRIL [amLODIPine BESYLATE/BENAZEPRIL 10-20 mg] 1 cap PO DAILY Discharge Medication List Chlorthalidone [Hygroton] 25 mg PO W/BRKFST 12/13/24 [History] Famotidine [Pepcid] 20 mg PO BID 12/13/24 [History] Tamsulosin [Flomax] 0.4 mg PO DAILY 12/13/24 [History] amLODIPine BESYLATE/BENAZEPRIL [amLODIPine BESYLATE/BENAZEPRIL 10-20 mg] 1 cap PO DAILY 12/13/24 [History] Amoxic-Pot Clav 500-125 mg [Augmentin 500-125 mg] 1 tab PO Q12HR #8 tab 12/16/24 [Rx] HYDROcodone/APAP 5-325MG [[place] 5-325] 1 tab PO Q6HR PRN 3 Days #12 tab 12/16/24 [Rx] Follow up Appointment(s)/Referral(s): Nonstaff,Physician [Primary Care Provider] - 1-2 days Pierre Nagel DO [Medical Doctor] - 12/24/24 10:15 am ( ) Patient Instructions/Handouts: Low Fat Diet (DC), Laparoscopic Cholecystectomy (DC) Activity/Diet/Wound Care/Special Instructions: No driving while taking [place] No lifting over 10 pounds You may shower. No soaking or tub baths for 2 weeks Very light activity until you are reevaluated at your follow up appointment with your surgeon Discharge Disposition: HOME SELF-CARE
--- NOTE | 2024-12-16 13:52 | P.PN ---
Subjective Progress Note Date: 12/16/24 Hospital course: Patient is a very pleasant 69-year-old male with a past medical history of hypertension, BPH, and GERD. Scented to our facility on 12/13/2024 as a transfer from [facility] where patient initially presented with a chief complaint of abdominal pain and was found to have a 2.5 cm stone at the gallbladder neck with distended gallbladder and mild wall thickening concerning for acute cholecystitis. Upon arrival to our facility, patient underwent evaluation in the emergency department. Vital signs upon arrival show blood pressure 118/70, heart rate 82, respiratory rate 16, temp 97.9 F, and SpO2 of 99% on room air. EKG was completed showing normal sinus rhythm at 67 bpm with T wave inversion in inferior lead III and frequent PACs. Labs were completed and reviewed. CBC showing leukocytosis with WBC count of 10.94, elevated neutrophils of 9.21, and lymphocytes of 0.83. BMP unremarkable. Blood glucose 115. Calcium 9.4. Patient was admitted under the general surgery team and we were consulted for medical management throughout hospitalization. Physical exam: Patient was seen and fully evaluated at bedside this morning. He is day 2 postop laparoscopic cholecystectomy. He reports doing much better today. He is urinating without difficulties and no further episodes of postoperative urinary retention. Patient also reports passing flatus, tolerating oral intake, and denies having any nausea or vomiting. Vital signs reviewed and stable. General: Nontoxic, no distress and appears stated age. Derm: Skin warm and dry, normal coloration for ethnicity. Head: Atraumatic, normocephalic and symmetric. Eyes: EOM's intact, no lid lag, and anicteric sclera Mouth: no lip lesions, mucus membranes moist Cardiovascular: regular rate and rhythm with normal S1S2, no murmur, positive posterior tibial pulses bilaterally, and cap refill < 2 seconds. Lungs: Respirations even, regular, and unlabored on room air. Lungs CTA bilaterally, no rhonchi, no rales, no wheezing, and no accessory muscle usage. Abdominal: soft, tenderness upon palpation right upper and right lower quadrant no guarding, no appreciable organomegaly Ext: ROM intact. No gross muscle atrophy, no edema, no contractures Neuro: Speech clear, face symmetrical and CN II-XII grossly intact with no noted focal neuro deficits Psych: Alert and oriented to person, place, time, and situation. Appropriate and pleasant affect. Assessment and Plan of Care: Acute cholecystitis Hyperbilirubinemia - Patient admitted under general surgery team with plans to take patient for laparoscopic cholecystectomy later today. - Continue IV antibiotics with Zosyn 3.375 g every 8 hours. - Zofran 4 mg IVP every 8 hours as needed for nausea or vomiting. - Tylenol 650 mg p.o. every 6 hours as needed for mild pain/fever, [place] 10/325 mg tablets every 6 hours as needed for moderate pain, Dilaudid 1 mg every 3 hours as needed for severe pain. - Continue full liquid diet, advancement of diet by general surgery team. - GI prophylaxis with Protonix 40 mg daily. Postoperative urinary retention BPH Continue Flomax 0.4 mg daily. Continue bladder scanning to monitor for urinary retention and straight cath as needed for retention greater than 300 cc. Hypertension Monitor vital signs and continue daily medication regimen with-amlodipine 10 mg daily and lisinopril 20 mg daily. Will hold chlorthalidone while patient remains NPO. Benign prostate hypertrophy -Continue Flomax 0.4 mg daily. GERD -GI prophylaxis with Protonix 40 mg daily. Data and imaging reviewed: Morning labs reviewed. CBC showing mild thrombocytopenia with platelet count of 121. BMP unremarkable. Blood glucose 104. Liver profile showing resolution of hyperbilirubinemia with total bili of 1.1 and slightly elevated conjugated bilirubin of 0.41. Vital signs reviewed. Blood pressure 119/71, heart rate 91, respiratory rate 18, temp 98.5 F, and SpO2 of 96% on room air Patient medically optimized for discharge once cleared by primary admitting general surgery team Thank you for allowing us to participate in the care of this pleasant patient. Do not hesitate to contact us with questions. Someone can be reached from the [facility] hospitalist group all hours of the day at [phone] or via [employer]. Patient was seen independently by Nurse Pracitioner. This document was prepared using [employer] dictation software. Please allow for errors in cheese production supervisor, while rare they do occur. Avtar Vasquez NP rendered care for this patient independently, reviewed the findings and plan as documented in the note above and agree with plan. I did not physically speak with or examine the patient on this date. Objective - Vital Signs Vital signs: Vital Signs Temp 98.5 F 12/16/24 07:07 Pulse 91 12/16/24 07:07 Resp 18 12/16/24 07:07 BP 119/71 12/16/24 07:07 Pulse Ox 97 12/16/24 09:28 FiO2 Intake & Output 12/15/24 12/16/24 12/16/24 18:59 06:59 18:59 Intake Total 500 900 Balance 500 900 Intake: Intake, IV Titration 900 Amount Sodium Chloride 0.9% 1, 900 000 ml @ 75 mls/hr IV . [id number] [facility] Rx#:[id number] Oral 500 Other: Voiding Method Urinal # Voids 4 - Labs CBC & Chem 7: 12/16/24 02:43 12/16/24 02:43 Labs: Abnormal Lab Results - Last 24 Hours (Table) 12/15/24 12/15/24 Range/Units 04:28 04:28 Plt Count 129 L (140-440) X 10*3/uL Lymphocytes # 0.77 L (0.90-5.00) X 10*3/uL BUN/Creatinine Ratio 9.38 L (12.00-20.00) Ratio Calcium 8.4 L (8.7-10.3) mg/dL Conjugated Bilirubin 0.43 H (0.20-0.40) mg/dL Alkaline Phosphatase 34 L (41-126) U/L Total Protein 5.5 L (6.2-8.2) g/dL Albumin 3.4 L (3.8-4.9) g/dL
== END 2024-12-16 13:45 | disposition home or self-care (01) | DRG 419 ==
LOC: EC 15:15 → 4SSUR 16:28
PROVIDERS: ADMIT Surgery; ATTEND Surgery
PROC: 8E0W4CZ Robotic Assisted Procedure of Trunk Region, Percutaneous Endoscopic Approach (ICD-10-PCS; principal; 2024-12-14 12:00)
PROC: 0FT44ZZ Resection of Gallbladder, Percutaneous Endoscopic Approach (ICD-10-PCS; principal; 2024-12-14 12:00)
DX: K81.0 Acute cholecystitis (principal); K82.A1 Gangrene of gallbladder in cholecystitis; I10 Essential (primary) hypertension; K82.8 Other specified diseases of gallbladder; K21.9 Gastro-esophageal reflux disease without esophagitis; N40.0 Benign prostatic hyperplasia without lower urinary tract symptoms; Z79.899 Other long term (current) drug therapy; Z87.891 Personal history of nicotine dependence
CPT/HCPCS: 80048; 80053; 80076; 82248; 83735; 85025; 85610; 88304; 93005; 94760; 99283